=== PATIENT | male | born 1970 | race Hispanic/Latino ===

== ENCOUNTER 2020-08-15 14:54 | Emergency (ER) | payer SELFPAY ==
[~2020-08-15] VITALS: Ht 162.6 cm; Wt 64.0 kg
[2020-08-16] MEDS ORDERED: AMOX/K CLAV875 M1 PO (02:48)
[2020-08-16 02:51] VITALS: BP 134/69
== END 2020-08-16 03:20 | disposition home or self-care (01) | DRG 87 ==
LOC: ED 14:54
DX: S06.9X1A Unspecified intracranial injury with loss of consciousness of 30 minutes or less, initial encounter (principal); S02.2XXA Fracture of nasal bones, initial encounter for closed fracture; S01.01XA Laceration without foreign body of scalp, initial encounter; S40.212A Abrasion of left shoulder, initial encounter; Y00.XXXA Assault by blunt object, initial encounter